=== PATIENT | male | born 1975 ===

== ENCOUNTER → 2024-03-18 11:21 | Emergency (ER) | payer OTHER, SELFPAY ==
[2024-03-18 11:24] VITALS: BP 130/84
--- NOTE | 2024-03-18 14:36 | ED.GENMED ---
History of Present Illness
General
Chief Complaint: Crisis Evaluation
Source: patient and police
Exam Limitations: none
Time Seen by Provider: 03/18/24 12:34
Nursing documentation reviewed up to this point in time: agreed with
History of Present Illness
History of Present Illness:
48-year-old male past history of hypertension hyperlipidemia presenting to the emergency department today with police from his psychiatrist office after he was kicked out due to requesting benzodiazepines. [place] he had multiple scripts in the
last month so they refused to prescribe him the police brought him here because he was upset about this. He denies any thoughts of harming self or others. He is concerned that he had trouble sleeping over the past few days. He is requesting
temazepam.
Review of Systems
Review of Systems
Allergies reviewed?: Yes
All Other Systems: ROS reviewed and negative except as documented in HPI and ROS
Phy Exam
Physical Exam
Physical Exam:
GENERAL: Alert , in no apparent distress
EYE: pupils equal and reactive
NECK: Supple, no significant adenopathy.
ENT: o/p clr, mmm.
CARDIAC: Regular rate and rhythm .
LUNGS: Clear breath sounds bilaterally, no acute respiratory distress, no wheezes/rales/rhonchi
ABDOMEN: Soft, without focal tenderness, no r/g, no cvat
NEUROLOGICAL: Alert and oriented, no focal neuro deficits
SKIN: Warm and dry, skin intact.
MUSCULOSKELETAL: No edema, well perfused.
PSYCH: Normal and appropriate interaction.
Course
Orders/Labs/Results
Orders:
Orders
03/18/24 12:47
Crisis Consult Urgent
Reason for Consult: needs psych follow up
Vital Signs
Initial and Last Documented VS:
Initial Vital Signs
Temp Pulse Resp BP Pulse Ox
97.7 F 78 16 130/84 98
03/18/24 11:24 03/18/24 11:24 03/18/24 11:24 03/18/24 11:24 03/18/24 11:24
Last Documented Vital Signs
Temp Pulse Resp BP Pulse Ox
97.7 F 78 16 130/84 98
03/18/24 11:24 03/18/24 11:24 03/18/24 11:24 03/18/24 11:24 03/18/24 11:24
MDM/Problems Addressed
MDM/Problems Addressed:
48-year-old male generally well-appearing no significant distress at this point vital signs are normal. Patient requesting benzodiazepines. He is also requesting a new psychiatrist. Crisis team assessed the patient and set him up with a new
psychiatrist as he is fallen out of care of multiple others. He is requesting temazepam here. After crisis assessment the patient claimed that he wanted to leave and no longer wanted to wait here. At this point patient does not meet any 302
criteria he is free to leave.
*Critical Care Note
Total Time (30-74mins, 75-104mins- exclusive of procedures): Not Applicable
ED Attending Note
-
Portions of this chart may have been created with voice recognition software.� Occasional wrong word or��sound alike� substitutions may have occurred due to the inherent limitations of voice recognition software.
Discharge Plan
Departure
Patient Disposition: Home (Routine Discharge)
Date of Disposition: 03/18/24
Time of Disposition: 14:49
Patient with high blood pressure during this ER visit?: No
Condition: Good
Covid-19: Not Applicable
Discharge Problem:
Insomnia
Instructions: [facility]
Referrals:
Malcolm Mclaughlin MD [Family Provider] -
Interventions
Interventions:
*Risk Screen - Suicide Last Done: 03/18/24 11:24
*Neglect/Abuse Screening Last Done: 03/18/24 11:24
Discharge Date and Time
Print Language: [place]
== END | disposition home or self-care (01) ==
LOC: EMR 11:21
PROVIDERS: EMERGENCY PHYSICIAN Emergency Medicine; FAMILY PHYSICIAN Internal Medicine
DX: G47.00 Insomnia, unspecified (principal); I10 Essential (primary) hypertension; E78.00 Pure hypercholesterolemia, unspecified
CPT/HCPCS: 99282

== ENCOUNTER → 2025-01-26 15:19 | Outpatient (REF) | payer OTHER, SELFPAY | LOC: MRI 3T 15:19 | PROVIDERS: ATTENDING PHYSICIAN Specialist; PRIMARYCARE PHYSICIAN Internal Medicine | DX: C74.90 Malignant neoplasm of unspecified part of unspecified adrenal gland (principal) | CPT/HCPCS: 74183; A9575 ==